=== PATIENT | male | born 1990 | race Caucasian/White ===

== ENCOUNTER 2024-05-12 11:22 | Inpatient (IN) | payer MEDICAID ==
[~2024-05-12] VITALS: Ht 185.4 cm; Wt 94.8 kg
[2024-05-12] MEDS ORDERED: ONDANSETRON HCL/PF 4 MG/2 ML VIAL ONE ×2 (11:48→12:57)
[2024-05-12] MEDS: IV NS 0.9% 1,000 ML BAG IV ONE (12:00)
[2024-05-12] MEDS: ONDANSETRON HCL/PF 4 MG/2 ML VIAL IVP ONE (12:00)
[2024-05-12 12:09] LABS: BASOPHILS # (AUTO) 0.1 K/uL (0.0-0.2); BASOPHILS % (AUTO) 0.8 % (0.0-2.0); EOSINOPHILS # (AUTO) 0.1 K/uL (0.0-0.7); EOSINOPHILS % (AUTO) 0.6 % (0.0-6.0); HEMATOCRIT 41 % (39-51); HEMOGLOBIN 14.4 g/dL (13.5-17.5); LYMPHOCYTES # (AUTO) 2.1 K/uL (0.8-4.8); LYMPHOCYTES % (AUTO) 22.7 % (20.0-44.0); MEAN CORPUSCULAR HEMOGLOBIN 31 PG (26.0-33.0); MEAN CORPUSCULAR HGB CONC 35 g/dl (31.0-36.0); MEAN CORPUSCULAR VOLUME 87 fL (80-96); MONOCYTES % (AUTO) 10.5 % (2.0-12.0); NEUTROPHILS % (AUTO) 65.4 % (43.0-81.0); PLATELET COUNT (AUTO) 246 K/uL (150-450); RED CELL DISTRIBUTION WIDTH 13.4 % (11.5-15.0); WHITE BLOOD COUNT (AUTO) 9.2 K/uL (4.3-11.0)
[2024-05-12 12:23] LABS: ALBUMIN 3.8 g/dL (3.4-5.0); BILIRUBIN,DIRECT 0.5 mg/dL (0.0-0.2); BILIRUBIN,TOTAL 2.5 mg/dL (0.2-1.0); CALCIUM, SERUM 9.2 mg/dL (8.5-10.1); CREATININE 1.1 mg/dL (0.6-1.3); TOTAL PROTEIN, SERUM 6.8 g/dL (6.4-8.2)
[2024-05-12 12:25] LABS: POTASSIUM 2.5 mmol/L (3.5-5.1)
[2024-05-12] MEDS: LORAZEPAM 1 MG TABLET PO ONE (12:30)
[2024-05-12] MEDS ORDERED: LORAZEPAM 1 MG TABLET ONE (12:30)
[2024-05-12 13:00] VITALS: O2SAT 99
[2024-05-12] MEDS: ONDANSETRON HCL/PF - ER 4 MG/2 ML VIAL IV ONE (13:25)
[2024-05-12] MEDS: POTASSIUM CHLORIDE 20 MEQ TAB.PRT.SR PO ONE (13:30)
[2024-05-12] MEDS: POTASSIUM CL. PREMIX PERIPHER. 50 ML IV SCH (13:30)
[2024-05-12] MEDS ORDERED: ACETAMINOPHEN 325 MG TABLET PO PRN (15:00)
[2024-05-12] MEDS ORDERED: Z GUARD REMEDY 4 OZ OINT TP PRN (15:00)
[2024-05-12] MEDS ORDERED: HYDROCODONE/APAP 5/325MG TABLET PO PRN (15:00)
[2024-05-12] MEDS ORDERED: MAG HYDROX/AL HYDROX/SIMETH 30 ML UDC PO PRN (15:00)
[2024-05-12] MEDS ORDERED: MAGNESIUM HYDROXIDE 30 ML UDC PO PRN (15:00)
[2024-05-12] MEDS ORDERED: ONDANSETRON HCL/PF 4 MG/2 ML VIAL IVP PRN (15:00)
[2024-05-12] MEDS: PANTOPRAZOLE 40 MG VIAL IV SCH (16:10)
[2024-05-12] MEDS: IV NS 0.9% 1,000 ML IV PRN (16:11)
[2024-05-12 20:04] VITALS: BP 125/86; TEMP 98.2; O2SAT 98
[2024-05-12] MEDS: TEMAZEPAM 15 MG CAPSULE PO PRN (21:37)
[2024-05-12] MEDS: NICOTINE PATCH (21MG) 21 MG PATCH.TD24 TD SCH (22:03)
[2024-05-13 06:48] LABS: BASOPHILS # (AUTO) 0.1 K/uL (0.0-0.2); BASOPHILS % (AUTO) 0.8 % (0.0-2.0); EOSINOPHILS # (AUTO) 0.2 K/uL (0.0-0.7); EOSINOPHILS % (AUTO) 2.3 % (0.0-6.0); HEMATOCRIT 39 % (39-51); HEMOGLOBIN 13.9 g/dL (13.5-17.5); LYMPHOCYTES % (AUTO) 35.6 % (20.0-44.0); MEAN CORPUSCULAR HEMOGLOBIN 31 PG (26.0-33.0); MEAN CORPUSCULAR HGB CONC 36 g/dl (31.0-36.0); MEAN CORPUSCULAR VOLUME 88 fL (80-96); MONOCYTES # (AUTO) 0.8 K/uL (0.1-1.30); MONOCYTES % (AUTO) 9.1 % (2.0-12.0); NEUTROPHILS # (AUTO) 4.5 K/uL (1.8-8.9); NEUTROPHILS % (AUTO) 52.2 % (43.0-81.0); PLATELET COUNT (AUTO) 215 K/uL (150-450); RED BLOOD CELL COUNT(AUTO) 4.44 MIL/uL (4.5-6.0); RED CELL DISTRIBUTION WIDTH 13.1 % (11.5-15.0); WHITE BLOOD COUNT (AUTO) 8.6 K/uL (4.3-11.0)
[2024-05-13 07:54] LABS: CALCIUM, SERUM 8.2 mg/dL (8.5-10.1); CREATININE 0.8 mg/dL (0.6-1.3); MAGNESIUM 2.4 mg/dL (1.8-2.4)
[2024-05-13 08:00] VITALS: BP 120/85; TEMP 98.2; O2SAT 97
[2024-05-13] MEDS: LORAZEPAM 1 MG TABLET PO PRN (08:33)
[2024-05-13 08:48] LABS: POTASSIUM 2.7 mmol/L (3.5-5.1)
[2024-05-13] MEDS: PANTOPRAZOLE 40 MG TABLET.DR PO SCH (08:49)
[2024-05-13] MEDS ORDERED: LORA-259 PO (08:52)
[2024-05-13] MEDS: POTASSIUM CHLORIDE 20 MEQ TAB.PRT.SR PO ONE (09:02)
[2024-05-13] MEDS ORDERED: POTASSIUM CHLORIDE 20 MEQ TAB.PRT.SR PO ONE ×2 (12:00→14:00)
== END 2024-05-13 09:20 | disposition home or self-care (01) | DRG 249 ==
LOC: ER 11:29 → MED 13:14
PROVIDERS: ADMIT Nurse Practitioner Acute Care; ATTEND Nurse Practitioner Acute Care
DX: R11.2 Nausea with vomiting, unspecified (principal); E87.1 Hypo-osmolality and hyponatremia; E66.9 Obesity, unspecified; E87.6 Hypokalemia; Z88.0 Allergy status to penicillin; F12.988 Cannabis use, unspecified with other cannabis-induced disorder; F41.9 Anxiety disorder, unspecified; K21.9 Gastro-esophageal reflux disease without esophagitis; K82.8 Other specified diseases of gallbladder; Z68.27 Body mass index [BMI] 27.0-27.9, adult; E86.1 Hypovolemia
CPT/HCPCS: 36415; 71045-TC; 76705-TC; 80048-TC; 80076-TC; 83690-TC; 83735-TC; 84100-TC; 85025-TC; A4223; G0378; G0480; J2405; J2470; J3480; J7030